=== PATIENT | female | born 1960 | race Caucasian/White ===

== ENCOUNTER → 2024-08-12 12:33 | Outpatient (REF) | payer BC, SELFPAY | LOC: WDC 12:33 | PROVIDERS: ATTENDING PHYSICIAN Physician Assistant Medical | DX: Z12.31 Encounter for screening mammogram for malignant neoplasm of breast (principal) | CPT/HCPCS: 77063; 77067 ==

== ENCOUNTER → 2025-01-25 10:09 | Outpatient (REF) | payer BC, SELFPAY | LOC: RAD 10:09 | PROVIDERS: ATTENDING PHYSICIAN Orthopaedic Surgery; FAMILY PHYSICIAN Physician Assistant Medical | DX: M79.661 Pain in right lower leg (principal) | CPT/HCPCS: 93971 ==